=== PATIENT | female | born 1940 | race Caucasian/White ===

== ENCOUNTER 2024-09-21 03:40 | Inpatient (IN) | payer MEDICARE ==
[2024-09-21] VITALS (8 sets, daily range): BP systolic 162–203; BP diastolic 67–120; PULSE 73–87; RESP 15–18; TEMP 97.8–99; O2SAT 95–97
[~2024-09-21] VITALS: Ht 165.1 cm; Wt 82.1 kg
[~2024-09-21 03:40] MED LIST: AMIT25TA9 PO; CARB1TAB35 PO; CELE-127 PO; GABA-535 PO; LEVO100T PO; PANT40TA54 PO; ZOLP10TA PO
[2024-09-21] MEDS: normal saline 1000ml 1,000 ML IV ONE ×2 (04:05→07:07)
[2024-09-21 04:37] LABS: BASOPHILS % (AUTO) 0.5 % (0-1); EOSINOPHILS % (AUTO) 0.4 % (0-6); HEMATOCRIT 40.9 % (35.0-45.0); HEMOGLOBIN 13.6 g/dl (12.0-16.0); LYMPHOCYTES # (AUTO) 0.7 X10'3 (1.1-4.8); LYMPHOCYTES % (AUTO) 8.3 % (21-51); MEAN CORPUSCULAR HEMOGLOBIN 31.3 PG (27.0-31.0); MEAN CORPUSCULAR HGB CONC 33.2 g/dL (33.0-36.5); MEAN CORPUSCULAR VOLUME 94.2 FL (78-98); MEAN PLATELET VOLUME 8.5 FL (7.4-10.4); MONOCYTES # (AUTO) 1.2 X10'3 (0-0.9); MONOCYTES % (AUTO) 13.9 % (2-12); NEUTROPHILS # (AUTO) 6.5 X10'3 (1.8-7.7); NEUTROPHILS % (AUTO) 76.9 % (42-75); PLATELET COUNT 321 X10'3 (140-440); RED BLOOD COUNT 4.35 X10'6 (4.20-5.60); RED CELL DISTRIBUTION WIDTH 13.7 % (11.5-14.5); WHITE BLOOD COUNT 8.5 X10'3 (4.5-11.0)
[2024-09-21 04:38] LABS: BILIRUBIN,URINE NEGATIVE (Neg); CLARITY,URINE CLEAR (Clear); COLOR,URINE YELLOW (Yellow); GLUCOSE, URINE NEGATIVE (Neg); KETONES,URINE 15 mg/dl (Neg); LEUKOCYTE ESTERASE ,URINE NEGATIVE (Neg); NITRITES, URINE POSITIVE (Neg); OCCULT BLOOD,URINE TRACE-INTACT (Neg); PROTEIN,URINE NEGATIVE (Neg); UROBILINOGEN,URINE 0.2 E.U/dL (0.2-1.0)
[2024-09-21 04:45] LABS: BACTERIA,URINE 4+ /HPF (Neg); RBC,URINE 0-2 /HPF (0-2); SQUAMOUS EPITHELIAL CELL,UR NONE SEEN /LPF (FEW); WBC,URINE 20-30 /HPF (0-4)
[2024-09-21 04:46] LABS: WBC CLUMPS,URINE MODERATE /HPF (NEGATIVE)
[2024-09-21 04:49] LABS: ALANINE AMINOTRANSFERASE 38 U/L (12-78); ALBUMIN 3.7 G/DL (3.4-5.0); ALBUMIN/GLOBULIN RATIO 0.8 (1.1-1.5); ALKALINE PHOSPHATASE 84 IU/L (46-116); ANION GAP 14 (8-16); ASPARTATE AMINO TRANSFERASE 37 U/L (10-37); BILIRUBIN,TOTAL 0.4 MG/DL (0.1-1.0); BLOOD UREA NITROGEN 16 MG/DL (7-18); BUN/CREATININE RATIO 14.7 (10.0-20.0); CALCIUM 9.1 MG/DL (8.5-10.1); CHLORIDE 97 MMOL/L (99-107); CREATININE 1.09 MG/DL (0.40-0.90); GLUCOSE 117 MG/DL (70-104); POTASSIUM 3.5 MMOL/L (3.5-5.1); SODIUM 135 MMOL/L (135-145); TOTAL PROTEIN 8.1 G/DL (6.4-8.2); eCRCL 34 ML/MIN; eGFR 48 ML/MIN
[2024-09-21 04:54] LABS: UA COLLECTION TYPE STRAIGHT CATH
[2024-09-21 04:58] LABS: PRO BRAIN NATRIURETIC PEPTIDE 643 PG/ML (0-450)
[2024-09-21] MEDS: CefTRIAXone/D5W-Rocephin 1gm 50 ML IV ONE (05:44)
[2024-09-21] MEDS: acetaminophen 1,000mg/100ml IV 100 ML IV ONE (05:48)
[2024-09-21] MEDS ORDERED: magnesium Cl slow-release 64mg tablet PO PRN (06:25)
[2024-09-21] MEDS ORDERED: acetaminophen 325mg tablet PO PRN (06:25)
[2024-09-21] MEDS ORDERED: magnesium sulf-water 4G/100mL 100 ML IV PRN (06:25)
[2024-09-21] MEDS ORDERED: magnesium sulf-water 2g/50mL 50 ML IV PRN (06:25)
[2024-09-21] MEDS ORDERED: potassium Cl 40MEQ/1/2NS 520ml 520 ML IV PRN (06:25)
[2024-09-21] MEDS ORDERED: mag hydrox/Alum hydrox/simeth 30ml oral suspension PO PRN (06:25)
[2024-09-21] MEDS ORDERED: potassium Cl 20 mEq SR tablet PO PRN (06:25)
[2024-09-21] MEDS ORDERED: ondansetron/PF 4mg/2ml inj IV PRN (06:25)
[2024-09-21] MEDS ORDERED: magnesium hydroxide 30ml (MOM) UD suspension PO PRN (06:25)
[2024-09-21] MEDS: K and/or MAG REPLACEMENT MC SCH (07:07)
[2024-09-21] MEDS: hydrALAZINE 20mg/ml inj. IV ONE ×2 (07:29→21:23)
[2024-09-21 07:57] LABS: POTASSIUM 3.3 MMOL/L (3.5-5.1)
[2024-09-21] MEDS: docusate sod 100mg capsule PO SCH (09:00)
[2024-09-21] MEDS: carvedilol 6.25mg tablet PO ONE (09:00)
[2024-09-21] MEDS: hydrALAZINE 20mg/ml inj. IV PRN (09:03)
[2024-09-21] MEDS: heparin, porcine 5000 units/ml vial SQ SCH (09:04)
[2024-09-21] MEDS: normal saline 1000ml 1,000 ML IV SCH (09:12)
[2024-09-21] MEDS ORDERED: LEVO125T8 PO (10:56)
[2024-09-21] MEDS ORDERED: LOVA40TA2 PO (10:56)
[2024-09-21] MEDS ORDERED: ASPI81TA52 PO (15:16)
[2024-09-21] MEDS ORDERED: MAGN400C PO (15:16)
[2024-09-21] MEDS ORDERED: MULT-1085 PO (15:18)
[2024-09-21] MEDS ORDERED: OMEG-5 PO (15:18)
[2024-09-21] MEDS ORDERED: GUAI200T5 PO (17:55)
[2024-09-21] MEDS: carvedilol 6.25mg tablet PO SCH (20:08)
[2024-09-21] MEDS: potassium Cl 20 mEq SR tablet PO PRN (20:09)
[2024-09-21] MEDS ORDERED: hydrALAZINE 20mg/ml inj. IV PRN (21:05)
[2024-09-21] MEDS: zolpidem 5mg tablet PO ONE (23:06)
[2024-09-22] VITALS (7 sets, daily range): BP systolic 125–180; BP diastolic 67–85; PULSE 74–86; RESP 15–18; TEMP 97.8–99; O2SAT 92–95
[2024-09-22 06:34] LABS: BASOPHILS % (AUTO) 0.7 % (0-1); EOSINOPHILS % (AUTO) 0.5 % (0-6); HEMATOCRIT 38.8 % (35.0-45.0); HEMOGLOBIN 13.2 g/dl (12.0-16.0); LYMPHOCYTES # (AUTO) 1.8 X10'3 (1.1-4.8); LYMPHOCYTES % (AUTO) 27.6 % (21-51); MEAN CORPUSCULAR HEMOGLOBIN 31.4 PG (27.0-31.0); MEAN CORPUSCULAR HGB CONC 33.9 g/dL (33.0-36.5); MEAN CORPUSCULAR VOLUME 92.5 FL (78-98); MEAN PLATELET VOLUME 8.6 FL (7.4-10.4); MONOCYTES # (AUTO) 0.9 X10'3 (0-0.9); MONOCYTES % (AUTO) 13.5 % (2-12); NEUTROPHILS # (AUTO) 3.8 X10'3 (1.8-7.7); NEUTROPHILS % (AUTO) 57.7 % (42-75); PLATELET COUNT 335 X10'3 (140-440); RED CELL DISTRIBUTION WIDTH 13.5 % (11.5-14.5); WHITE BLOOD COUNT 6.6 X10'3 (4.5-11.0)
[2024-09-22 06:47] LABS: ALANINE AMINOTRANSFERASE 37 U/L (12-78); ALBUMIN 3.1 G/DL (3.4-5.0); ALBUMIN/GLOBULIN RATIO 0.8 (1.1-1.5); ALKALINE PHOSPHATASE 68 IU/L (46-116); ANION GAP 12 (8-16); ASPARTATE AMINO TRANSFERASE 42 U/L (10-37); BILIRUBIN,TOTAL 0.3 MG/DL (0.1-1.0); BLOOD UREA NITROGEN 12 MG/DL (7-18); BUN/CREATININE RATIO 16.4 (10.0-20.0); CALCIUM 9.1 MG/DL (8.5-10.1); CHLORIDE 101 MMOL/L (99-107); CREATININE 0.73 MG/DL (0.40-0.90); GLUCOSE 105 MG/DL (70-104); MAGNESIUM 1.8 MG/DL (1.5-2.4); POTASSIUM 3.7 MMOL/L (3.5-5.1); SODIUM 135 MMOL/L (135-145); TOTAL CARBON DIOXIDE 21.7 MMOL/L (24-32); TOTAL PROTEIN 7.2 G/DL (6.4-8.2); eCRCL 51 ML/MIN; eGFR 76 ML/MIN
[2024-09-22] MEDS: carVEDilol 12.5mg tablet PO SCH (08:22)
[2024-09-22] MEDS: CefTRIAXone 2gm/D5W 50ml BAG 50 ML IV SCH (08:43)
[2024-09-22] MEDS: amLODIPine 5mg tablet PO ONE (11:28)
[2024-09-22] MEDS: losartan 50mg tablet PO ONE (11:28)
[2024-09-22] MEDS: carbidoba-levodopa 25-100mg tablet PO SCH (19:52)
[2024-09-22] MEDS ORDERED: zolpidem 5mg tablet PO ONE (21:00)
[2024-09-23] VITALS (8 sets, daily range): BP systolic 144–183; BP diastolic 63–78; PULSE 65–76; RESP 13–17; TEMP 96.8–98.2; O2SAT 91–96
[2024-09-23] MEDS: zolpidem 5mg tablet PO PRN (00:47)
[2024-09-23] MEDS: acetaminophen 325mg tablet PO PRN (00:48)
[2024-09-23 06:19] LABS: BASOPHILS # (AUTO) 0.1 X10'3 (0-0.2); EOSINOPHILS # (AUTO) 0.1 X10'3 (0-0.9); EOSINOPHILS % (AUTO) 0.8 % (0-6); HEMATOCRIT 38.9 % (35.0-45.0); HEMOGLOBIN 13.1 g/dl (12.0-16.0); LYMPHOCYTES # (AUTO) 2.3 X10'3 (1.1-4.8); LYMPHOCYTES % (AUTO) 35.2 % (21-51); MEAN CORPUSCULAR HEMOGLOBIN 31.2 PG (27.0-31.0); MEAN CORPUSCULAR HGB CONC 33.7 g/dL (33.0-36.5); MEAN CORPUSCULAR VOLUME 92.7 FL (78-98); MEAN PLATELET VOLUME 8.3 FL (7.4-10.4); NEUTROPHILS # (AUTO) 3.1 X10'3 (1.8-7.7); PLATELET COUNT 349 X10'3 (140-440); RED CELL DISTRIBUTION WIDTH 13.8 % (11.5-14.5); WHITE BLOOD COUNT 6.5 X10'3 (4.5-11.0)
[2024-09-23 06:46] LABS: ALANINE AMINOTRANSFERASE 15 U/L (12-78); ALBUMIN 2.9 G/DL (3.4-5.0); ALBUMIN/GLOBULIN RATIO 0.7 (1.1-1.5); ALKALINE PHOSPHATASE 61 IU/L (46-116); ANION GAP 11 (8-16); ASPARTATE AMINO TRANSFERASE 38 U/L (10-37); BILIRUBIN,TOTAL 0.3 MG/DL (0.1-1.0); BLOOD UREA NITROGEN 15 MG/DL (7-18); CALCIUM 8.8 MG/DL (8.5-10.1); CHLORIDE 102 MMOL/L (99-107); CREATININE 0.79 MG/DL (0.40-0.90); FREE T4 (FREE THYROXINE) 1.25 NG/DL (0.73-1.40); GLUCOSE 103 MG/DL (70-104); MAGNESIUM 1.8 MG/DL (1.5-2.4); POTASSIUM 3.2 MMOL/L (3.5-5.1); SODIUM 136 MMOL/L (135-145); THYROID STIMULATING HORMONE 0.97 ulU/ml (0.34-4.50); TOTAL CARBON DIOXIDE 22.8 MMOL/L (24-32); TOTAL PROTEIN 6.8 G/DL (6.4-8.2); eCRCL 47 ML/MIN; eGFR 69 ML/MIN
[2024-09-23] MEDS: hydrALAZINE 20mg/ml inj. IV SCH (08:10)
[2024-09-23] MEDS: levoTHYROXINE 125mcg tablet PO SCH (08:46)
[2024-09-23] MEDS: aspirin 81mg, enteric-coated 1 TAB TABLET.DR PO SCH (08:46)
[2024-09-23] MEDS: amLODIPine 5mg tablet PO SCH (08:53)
[2024-09-23] MEDS: losartan 25mg tablet PO SCH (08:54)
[2024-09-23] MEDS: hydrALAZINE 20mg/ml inj. IV PRN (17:12)
[2024-09-24 06:00] VITALS: BP 124/67; PULSE 69; RESP 15; TEMP 97.3; O2SAT 96
[2024-09-24 06:22] LABS: BASOPHILS # (AUTO) 0.1 X10'3 (0-0.2); BASOPHILS % (AUTO) 1.2 % (0-1); EOSINOPHILS # (AUTO) 0.1 X10'3 (0-0.9); EOSINOPHILS % (AUTO) 2.4 % (0-6); HEMATOCRIT 38.7 % (35.0-45.0); HEMOGLOBIN 13.1 g/dl (12.0-16.0); LYMPHOCYTES % (AUTO) 32.6 % (21-51); MEAN CORPUSCULAR HGB CONC 33.9 g/dL (33.0-36.5); MEAN CORPUSCULAR VOLUME 91.4 FL (78-98); MEAN PLATELET VOLUME 8.5 FL (7.4-10.4); MONOCYTES % (AUTO) 16.3 % (2-12); NEUTROPHILS # (AUTO) 2.9 X10'3 (1.8-7.7); NEUTROPHILS % (AUTO) 47.5 % (42-75); PLATELET COUNT 359 X10'3 (140-440); RED BLOOD COUNT 4.24 X10'6 (4.20-5.60); RED CELL DISTRIBUTION WIDTH 13.7 % (11.5-14.5); WHITE BLOOD COUNT 6.2 X10'3 (4.5-11.0)
[2024-09-24 06:32] LABS: ALANINE AMINOTRANSFERASE 15 U/L (12-78); ALBUMIN 2.9 G/DL (3.4-5.0); ALBUMIN/GLOBULIN RATIO 0.7 (1.1-1.5); ALKALINE PHOSPHATASE 65 IU/L (46-116); ANION GAP 12 (8-16); ASPARTATE AMINO TRANSFERASE 47 U/L (10-37); BILIRUBIN,TOTAL 0.3 MG/DL (0.1-1.0); BLOOD UREA NITROGEN 14 MG/DL (7-18); BUN/CREATININE RATIO 18.4 (10.0-20.0); CALCIUM 8.9 MG/DL (8.5-10.1); CHLORIDE 103 MMOL/L (99-107); CREATININE 0.76 MG/DL (0.40-0.90); GLUCOSE 110 MG/DL (70-104); MAGNESIUM 1.7 MG/DL (1.5-2.4); POTASSIUM 3.8 MMOL/L (3.5-5.1); SODIUM 136 MMOL/L (135-145); TOTAL CARBON DIOXIDE 20.8 MMOL/L (24-32); eCRCL 49 ML/MIN; eGFR 72 ML/MIN
[2024-09-24 07:00] VITALS: BP 197/81; PULSE 72
[2024-09-24 08:00] VITALS: RESP 15; O2SAT 96
[2024-09-24 08:31] LABS: TOTAL CELLS COUNTED 100
[2024-09-24 08:32] LABS: PLATELET ESTIMATE NORMAL
[2024-09-24 10:00] VITALS: BP 134/59; PULSE 67; RESP 14; TEMP 97.9; O2SAT 93
== END 2024-09-24 16:35 | DRG 871 ==
LOC: ER 03:40 → ED HOLD 05:18 → EDBEDREQ 06:48 → ORTHO 4S 07:45
PROVIDERS: ADMIT Internal Medicine Sleep Medicine; ATTEND Nurse Practitioner Family
DX: A41.9 Sepsis, unspecified organism (principal); G93.41 Metabolic encephalopathy; N39.0 Urinary tract infection, site not specified; I10 Essential (primary) hypertension; G47.00 Insomnia, unspecified; E78.00 Pure hypercholesterolemia, unspecified; E03.9 Hypothyroidism, unspecified; G20.A1 Parkinson's disease without dyskinesia, without mention of fluctuations; G62.9 Polyneuropathy, unspecified; Z88.1 Allergy status to other antibiotic agents; Z91.013 Allergy to seafood; Z79.899 Other long term (current) drug therapy
CPT/HCPCS: 36415; 70450; 71045; 76770; 80053; 81001; 83605; 83735; 83880; 84132; 84145; 84439; 84443; 84484; 85007; 85025; 87040; 87077; 87081; 87088; 87186; 93005; 93306; 96360; 97116; 97161; 97530; 99285; A4353; A4615; A6446; G0378; J0131; J0360; J0696; J1644; J7030